=== PATIENT | female | born 1960 | race Caucasian/White ===

== ENCOUNTER → 2017-04-29 | Outpatient (CLI) | payer MEDICAID ==
[~2017-04-29] VITALS: Ht 170.2 cm; Wt 142.9 kg
[~2017-04-29] MED LIST: AMBIEN 10MG10 MG PO; AMOXICILLIN 8751 TAB PO; BUSPAR10 MG PO; CELEBREX 200MG200 MG PO; DEPAKENE; DEPAKOTE500 M1 PO; HYDROCODONE/APAP; LAXATIVE; MELATONIN3 MG PO; MORPHINE SULFAT15 M2 PO; NEURONTIN300 MG/CAP PO; PAMELOR 10MG10 MG PO; PREDNISONE20 MG PO; PRILOSEC 20MG20 MG PO; PROAIR HFA0.09 MG/AC IH; PROZAC 20MG20 MG PO; RISPERDAL 1M1 MG/TAB PO; SENECOT; VICODIN HP 10 PO
[2017-04-29 15:21] VITALS: BP 126/74; PULSE 88
== END ==
LOC: LIGHT 10:44
DX: I10 Essential (primary) hypertension (principal); K21.9 Gastro-esophageal reflux disease without esophagitis; E66.01 Morbid (severe) obesity due to excess calories; Z68.42 Body mass index [BMI] 45.0-49.9, adult; Z71.3 Dietary counseling and surveillance

== ENCOUNTER 2017-07-06 14:15 | Outpatient (RCR) | payer MEDICAID | END 2017-07-20 07:59 | disposition home or self-care (01) | LOC: WSPT 14:15 | DX: E66.01 Morbid (severe) obesity due to excess calories (principal); M54.9 Dorsalgia, unspecified; G89.29 Other chronic pain ==

== ENCOUNTER → 2019-03-16 | Outpatient (CLI) | payer MEDICAID ==
[~2019-03-16] VITALS: Ht 170.2 cm; Wt 111.4 kg
[~2019-03-16] MED LIST changes: +COLACE 100100 MG/CAP PO; +D3-5050000 IU PO; +FLEXERIL 1010 MG/TAB PO; +IBU800 M1 PO; +MS CONTIN 330 MG/TAB PO; +PRENATAL 191 TAB PO; +TYLENOL 500MG500 MG PO; +VITAMIN B COMPL1 SGL PO
[2019-03-16 15:35] VITALS: BP 150/66; PULSE 88
== END ==
LOC: LIGHT 11:35
DX: I10 Essential (primary) hypertension (principal); K21.9 Gastro-esophageal reflux disease without esophagitis; E66.01 Morbid (severe) obesity due to excess calories; Z68.38 Body mass index [BMI] 38.0-38.9, adult; Z71.3 Dietary counseling and surveillance
CPT/HCPCS: G0463